=== PATIENT | female | born 1970 | race African-American/Black ===

== ENCOUNTER 2017-03-23 13:35 | Emergency (ER) | payer SELFPAY ==
[~2017-03-23] VITALS: Ht 160 cm; Wt 65.0 kg
[2017-03-23 13:40] VITALS: BP 164/108
== END 2017-03-23 14:11 | disposition left against medical advice (07) ==
LOC: ER 13:35
DX: Z53.21 Procedure and treatment not carried out due to patient leaving prior to being seen by health care provider (principal)